=== PATIENT | male | born 1950 ===

== ENCOUNTER 2017-08-06 09:29 | Emergency (ER) | payer OTHER ==
[2017-08-06 09:44] VITALS: BMI 25.1
[2017-08-06 09:46] VITALS: RESP 18
--- NOTE | 2017-08-06 11:27 | C.PDOC ---
History Of Present Illness 67 y/o female presents to ED with complaints of left hand pain, redness and swelling for 10 days after injuring hand at work. Patient states he banged his hand on a machine at work (dorsum of hand). Patient denies new injuries, rash, fever, sensory changes, breaks in the skin. Time Seen by Provider: 08/06/17 09:48 Chief Complaint (Nursing): Upper Extremity Problem/Injury History Per: Patient History/Exam Limitations: no limitations Onset/Duration Of Symptoms: Days Current Symptoms Are (Timing): Still Present Quality: "Pain" Severity: Mild Exacerbating Factor(s): Movement Past Medical History Reviewed: Historical Data, Nursing Documentation, Vital Signs Vital Signs: Last Vital Signs Temp 98.5 F 08/06/17 11:39 Pulse 78 08/06/17 11:39 Resp 18 08/06/17 11:39 BP 144/86 08/06/17 11:39 Pulse Ox 99 08/06/17 12:07 - Medical History PMH: No Chronic Diseases Surgical History: No Surg Hx Family History: States: No Known Family Hx - Social History Hx Alcohol Use: No Hx Substance Use: No Review Of Systems Except As Marked, All Systems Reviewed And Found Negative. Constitutional: Negative for: Fever, Chills Musculoskeletal: Positive for: Hand Pain Skin: Negative for: Rash Neurological: Negative for: Weakness, Numbness Physical Exam - Physical Exam Appears: Well, Non-toxic, No Acute Distress Skin: Warm, Dry, No Rash, Other (see extremity exam) Head: Normacephalic Eye(s): bilateral: Normal Inspection Oral Mucosa: Moist Neck: Supple Cardiovascular: Rhythm Regular Respiratory: Normal Breath Sounds, No Rales, No Rhonchi, No Wheezing Extremity: No Normal ROM (Decreased ROM of 2nd digit secondary to pain), Capillary Refill (<2 seconds all digits), No Deformity, Swelling (mild swelling of dorsal aspect of hand over 2nd MTP joint), Other (mild erythema and warmth at dorsal aspect of left hand over 2nd MTP joint, no open wounds/abrasions/ lacerations) Extremity: Left: Normal ROM (Left wrist and digits) Pulses: Left Radial: Normal Neurological/Psych: Oriented x3, Normal Sensation ED Course And Treatment O2 Sat by Pulse Oximetry: 99 (RA) Pulse Ox Interpretation: Normal - Other Rad left hand Xray X-Ray: Interpreted by Me, Viewed By Me (no fractures/dislocations) Progress Note: Xray ordered and reviewed, negative for acute fracture. Patient has no breaks in skin, but suspect mild cellulitis - PO Kelfex given. Patient given Rxs for Keflex and Naprosyn, and was instructed to follow up with hand surgeon within 1 week. He understands he should return to ED if symptoms worsen. Disposition Counseled Patient/Family Regarding: Studies Performed, Diagnosis, Need For Followup, Rx Given - Disposition Referrals: [facility] [Outside] [facility] [place] [Outside] Roc Corea MD [Staff Provider] - Disposition: HOME/ ROUTINE Disposition Time: 11:30 Condition: STABLE Additional Instructions: FOLLOW UP WITH HAND SURGEON WITHIN 1 WEEK RETURN TO ER IN TWO DAYS FOR WOUND CHECK USE ANTIBIOTICS UNTIL FINISHED RETURN TO ER IF SYMPTOMS WORSEN SEGUIMIENTO CON CIRUJANO DE MANO DENTRO DE 1 SEMANA VUELVA A ER EN DOS KIDD PARA CHEQUEO DE HERIDAS USE ANTIBITICOS HASTA QUE HAYA TERMINADO VOLVER A ER SI LOS SNTOMAS EMPEORAN Prescriptions: Cephalexin [Keflex] 500 mg PO BID #14 capsule Naproxen 375 mg PO BID PRN #20 tablet PRN Reason: pain Instructions: Cellulitis (Skin Infection), Adult (DC) Forms: [employer] (Moldovan) Print Language: KAZAKH - Clinical Impression Clinical Impression: Sprain of left hand, Cellulitis of left hand - Scribe Statement The provider has reviewed the documentation as recorded by the Lee Moraes All medical record entries made by the Raeannibargentina were at my direction and personally dictated by me. I have reviewed the chart and agree that the record accurately reflects my personal performance of the history, physical exam, medical decision making, and the department course for this patient. I have also personally directed, reviewed, and agree with the discharge instructions and disposition.
[2017-08-06 11:40] VITALS: BP 144/86; PULSE 78; TEMP 98.5
[2017-08-06 12:05] VITALS: O2SAT 99
--- NOTE | 2017-08-06 14:12 | RAD ---
PROCEDURE: Left Hand Radiographs. HISTORY: LEFT HAND PAIN, SWELLING AFTER INJURY 10 DAYS AGO COMPARISON: None. FINDINGS: BONES: No definitive radiographic evidence of acute displaced fracture nor dislocation. The osseous structures appear intact. No cortical destructive changes. . . JOINTS: Mild multi articular degenerative osteoarthritis SOFT TISSUES: Normal. OTHER FINDINGS: There are no radiopaque foreign body seen. IMPRESSION: No definitive radiographic evidence of acute displaced fracture nor dislocation. The osseous structures intact. Mild multi articular degenerative osteoarthritis.
== END 2017-08-06 12:24 | disposition home or self-care (01) ==
LOC: C.ER 09:29
DX: S63.92XA Sprain of unspecified part of left wrist and hand, initial encounter (principal); W22.8XXA Striking against or struck by other objects, initial encounter; Y92.89 Other specified places as the place of occurrence of the external cause; Y99.0 Civilian activity done for income or pay; L03.114 Cellulitis of left upper limb